=== PATIENT | male | born 1990 | race African-American/Black ===

== ENCOUNTER 2023-01-03 11:12 | Emergency (ER) | payer SELFPAY ==
[2023-01-03 11:24] VITALS: BP 139/74; PULSE 67; RESP 16; TEMP 98.4; BMI 27.7
[2023-01-03] MEDS ORDERED: KETOROLAC TROMETHAMINE 30 MG/1 ML VIAL IM ONE (12:53)
[2023-01-03] MEDS ORDERED: ACETAMINOPHEN 500 MG TABLET (FP) PO ONE (12:53)
[2023-01-03] MEDS ORDERED: KETOROLAC TROMETHAMINE 60 MG/2 ML VIAL ONE (12:55)
[2023-01-03] MEDS ORDERED: ACETAMINOPHEN 500 MG TABLET (FP) ONE (12:55)
[2023-01-03] MEDS ORDERED: oxyCODONE HCL 5 MG TABLET PO ONE (14:14)
[2023-01-03] MEDS ORDERED: oxyCODONE HCL 5 MG TABLET ONE (14:23)
== END 2023-01-03 16:17 | disposition home or self-care (01) ==
LOC: JERFT 11:12
PROC: 3E0233Z Introduction of Anti-inflammatory into Muscle, Percutaneous Approach (ICD-10-PCS; principal; 2023-01-03)
DX: M25.562 Pain in left knee (principal); V43.52XD Car driver injured in collision with other type car in traffic accident, subsequent encounter; Y93.I9 Activity, other involving external motion; Y92.410 Unspecified street and highway as the place of occurrence of the external cause
CPT/HCPCS: 73562-TC-LT-FY; 99284-25

== ENCOUNTER 2023-01-19 14:24 | Emergency (ER) | payer SELFPAY ==
[2023-01-19 14:36] VITALS: BP 117/73; PULSE 106; RESP 18; TEMP 98.2; BMI 27.7
== END 2023-01-19 15:53 | disposition home or self-care (01) ==
LOC: JER 14:24 → JERFT 14:24
DX: Z48.02 Encounter for removal of sutures (principal); L08.9 Local infection of the skin and subcutaneous tissue, unspecified
CPT/HCPCS: 99283-25